=== PATIENT | female | born 2000 ===

== ENCOUNTER 2020-08-22 12:16 | Outpatient (CLI) | payer OTHER ==
[2020-08-23 10:11] VITALS: BP 133/95
--- NOTE | 2020-08-23 10:11 | SLEEP CARE CONSULTATION ---
Information from patient questionnaire entered by Sridhar Lopez. I have reviewed and concur with the information entered by Sridhar Lopez. This document represents the service I personally performed and the decisions made by me, Kayleen Caballero MD, [facility]. History of Present Illness Service Date and Time: 08/22/2020 1216 Reason for Visit: New patient Chief Complaint: reports: Frequent awakenings at night, Other (nightmares) Date of Onset: 5 years? Usual bedtime: 9:30 PM - 10:30 PM Time it takes to fall asleep: Couple minutes/depends Snores at night: No (Unsure) Observed to quit breathing while asleep: No Sleeps alone due to snoring: No Number of times waking at night: 3 - 5 Reasons for waking at night: reports: Bathroom, Other (Unsure) Toss, Turn, or Twitch while sleeping: Yes Recalls having dreams: Yes Usually gets out of bed at: 0600 AM Feels refreshed in the morning: Yes Morning headache: Yes (Depends) Sleepy or fatigued during the day: Yes Ever fallen asleep while driving: No Takes day naps: No Dreams during day naps: Yes Prior sleep studies: No Additional HPI information: I had the pleasure of seeing Ms.. Magana today regarding the possibility of her having a sleep disorder. As you know, she is a 20 year old lady who complains of frequent awakenings and nightmares for the past 5 years. The patient tells me that she normally goes to bed around 9:30 10:30 pm, and it takes her approximately just a few minutes to fall asleep. She does not snore much. Nobody has seen her quit breathing at night, although she sleeps alone. She can recall waking up on the average of 3 - 5 times during the night. Most of the time she wakes up because of having to use the bathroom. She has never awakened because of her own snoring, choking, having to gasp for air. There is a lot of tossing and turning in her sleep. She talks in her sleep. She screamed once. No night sweat. Generally she can recall having dreams. In the morning she usually gets up out of the bed around 6 a.m. feeling refreshed and rested. She occasionally has a morning headache. During the day she complains of feeling does not fee sleepy and fatigued. Her score on [place] Sleepiness Scale is 5 out of 24. She never has fallen asleep while driving nor has had any accident due to sleepiness. She usually does not take naps during the day. Upon falling asleep during the day she reports having vivid dreams. There was one episode of sleep paralysis. She reports having impaired concentration during the day. - Parasomnia Symptoms Ever been unable to move upon waking from sleep: Yes Ever felt weak in the knees when startled or emotional: Yes (and no) Bothered by creepy, crawly, restless sensations in legs: No Problems with memory or concentration: Yes Subjective Initial [place] Sleepiness Scale score: 5 (in 2020) Past Medical History Past Medical History: reports: Anxiety (but finished treatment), Depression Social History The patient's occupation is an [employer] in the [place]. Patient is Single and lives in [place]. Have you smoked in the past 12 months: No Alcohol use: Yes Alcohol amount and frequency: 1 - 2, once a month Caffeine use: Yes Caffeine amount and frequency: 1 coffee here or there Family History Family history of sleep disordered breathing: No Allergies and Home Medications Drug allergies reviewed: Yes (NKDA) Home medication list reviewed: Yes (naproxen) Review of Systems Weight gain over past 5 years: 4 Cardiovascular: denies: high blood pressure, palpitations, chest pain, irregular heart rate or pulse, leg or foot swelling, have to sleep sitting up, other Respiratory: denies: shortness of breath, wheeze, sputum production, chronic cough, other Gastrointestinal: denies: heartburn, difficulty swallowing, nausea, vomitting, diarrhea, abdominal pain, other Urinary: denies: incontinence, frequency, urgency, impotence, other Neurological: reports: headaches Psychiatric: reports: anxiety Ear/Nose/Throat: denies: nasal congestion, sinus problems, nose bleeds, dry mouth/throat, hoarseness, injury to nose, tonsillectomy, wisdom teeth removed, other Endocrine: denies: thyroid disease, history of goiter, sluggishness, too hot or cold, excessive thirst, increased appetite, increased urination, unexplained wea kness, other Musculoskeletal: denies: joint pain, neck pain, back pain, joint swelling, muscle pain or cramping, mobility problems, other Immunologic: denies: sneezing, rash, itching, allergies to food or environment, other Physical Exam Vital signs obtained and entered by: Dr. Caballero Blood Pressure: 133/95 Cuff size: regular Heart Rate: 82 O2 Saturation: 98 Height: 5 ft 6 in Weight: 126 lb Body Mass Index: 20.3 BMI Classification: Healthy weight Neck circumference: 13.5 HEENT: No craniofacial malformation Nostrils: patent to airflow Turbinates: normal Septum: midline Mouth and throat: narrow oropharynx Soft palate: long Hard palate: normal Uvula: normal Uvula visualization: 50% Mallampati Class II Tongue: normal in size Tonsils: small Chin and jaw: normal size and position Neck: normal w/o lymphadenopathy or thyromegaly Heart: regular rate and rhythm Lungs: clear bilaterally Abdomen: soft Extremities: no edema or clubbing Neurologic: intact Impression and Plan IMPRESSION: 1. Insomnia, involving frequent awakenings during the night of unclear etiology. Contributing is nightmares. Sleep-disordered breathing is a possibility given narrow oropharynx. I recommend proceeding to polysomnography to confirm the diagnosis and to assess severity. I informed the patient of what the sleep studies involve and after some discussion, she agreed to proceed. Plan: 1. Schedule an in-laboratory polysomnography. 2. Return for a follow up after the sleep study. Visit Type: In Office Time Spent with Patient (minutes): 15 Provider Statement: I spent 100% of the Face to Face Visit with the patient with greater than 50% spent counseling the patient and coordination of care.
== END 2020-08-22 12:17 | disposition home or self-care (01) ==
LOC: SC 12:16
PROVIDERS: ATTEND Internal Medicine Pulmonary Disease
DX: G47.00 Insomnia, unspecified (principal); F51.5 Nightmare disorder; G47.9 Sleep disorder, unspecified; R53.83 Other fatigue; G47.8 Other sleep disorders; G47.50 Parasomnia, unspecified; G47.10 Hypersomnia, unspecified
CPT/HCPCS: 99202; 99212